=== PATIENT | female | born 1980 | race Caucasian/White ===

== ENCOUNTER 2018-09-18 14:57 | Emergency (ER) | payer SELFPAY ==
[~2018-09-18] VITALS: Ht 157.5 cm; Wt 63.6 kg
[2018-09-18 15:25] VITALS: Ht 157.5 cm; Wt 63.6 kg
[2018-09-18] MEDS ORDERED: IBUPROFEN800 MG PO (18:35)
[2018-09-18] MEDS ORDERED: BACTRIM 400-801 TAB PO (18:35)
[2018-09-18 19:00] VITALS: BP 118/75
== END 2018-09-18 18:57 | disposition home or self-care (01) ==
LOC: D.ER 14:57
DX: H10.32 Unspecified acute conjunctivitis, left eye (principal)